=== PATIENT | male | born 1985 | race Caucasian/White ===

== ENCOUNTER 2019-10-20 13:05 | Emergency (ER) | payer MEDICAID ==
[~2019-10-20] VITALS: Ht 180.3 cm; Wt 70.9 kg
--- NOTE | 2019-10-20 13:23 | NUR ---
PATIENT BROUGHT BACK FROM TRIAGE WITH CHIEF COMPLAINT OF POSSIBLE BUG BITE TO NECK LAST NIGHT. REPORTS PAIN, IRRITATION, ABD PAIN LAST NIGHT HOWEVER NO SYMPTOMS AT THIS TIME BUT NEEDS WORK NOTE TO RETURN TO WORK.
[2019-10-20 13:40] VITALS: BP 149/85
--- NOTE | 2019-10-20 13:42 | NUR ---
ERMD AT BEDSIDE FOR EVALUATION
--- NOTE | 2019-10-20 14:18 | NUR ---
DISCHARGE INSTRUCTIONS REVIEWED
== END 2019-10-20 14:19 | disposition home or self-care (01) ==
LOC: ED 13:38
DX: R19.7 Diarrhea, unspecified (principal); M54.2 Cervicalgia
CPT/HCPCS: 99281